=== PATIENT | female | born 1980 | race Caucasian/White ===

== ENCOUNTER → 2016-08-15 | Outpatient (REF) | payer OTHER | LOC: M LAB REF 16:36 | PROVIDERS: ATTEND Obstetrics & Gynecology | DX: O30.043 Twin pregnancy, dichorionic/diamniotic, third trimester (principal) ==

== ENCOUNTER 2016-08-22 13:51 | Outpatient (CLI) | payer OTHER ==
[~2016-08-22] VITALS: Ht 152.4 cm; Wt 95.0 kg
[2016-08-22] VITALS (13 sets, daily range): BP systolic 99–137; BP diastolic 60–79
[2016-08-22] MEDS ORDERED: PRENTAB9 PO (14:29)
[2016-08-22] MEDS ORDERED: LR 1,000 ML IV SCH (14:45)
[2016-08-22] MEDS ORDERED: LACTATED RINGER'S 1000 ML IV ONE (14:45)
[2016-08-22 15:17] LABS: MEAN CORPUSCULAR HEMOGLOBIN 28.5 pg (27.0-33.0); MEAN CORPUSCULAR HGB CONC 34.2 g/dl (32.0-36.5); MEAN CORPUSCULAR VOLUME 83.2 fl (80.0-96.0); RED CELL DISTRIBUTION WIDTH 16.8 % (11.5-14.5); WHITE BLOOD COUNT 11.5 K/mm3 (4.0-10.0)
[2016-08-22 15:46] LABS: ALBUMIN 2.9 GM/DL (3.2-5.2); ALBUMIN/GLOBULIN RATIO 0.73 (1.00-1.93); ALKALINE PHOSPHATASE 165 U/L (45-117); ALT/SGPT 10 U/L (12-78); ANION GAP 12 MEQ/L (8-16); AST/SGOT 16 U/L (15-37); BILIRUBIN,TOTAL 0.5 MG/DL (0.2-1.0); BLOOD UREA NITROGEN 6 MG/DL (7-18); CALCIUM LEVEL 9.1 MG/DL (8.5-10.1); CARBON DIOXIDE LEVEL 20 MEQ/L (21-32); CHLORIDE LEVEL 107 MEQ/L (98-107); CREATININE FOR GFR 0.62 MG/DL (0.55-1.02); GLOMERULAR FILTRATION RATE > 60.0 (>60); GLUCOSE, FASTING 69 MG/DL (70-105); SODIUM LEVEL 139 MEQ/L (136-145); TOTAL PROTEIN 6.9 GM/DL (6.4-8.2); URIC ACID 5.4 MG/DL (2.6-6.0)
--- NOTE | 2016-08-22 17:00 | REP ---
OB ultrasound 08/22/2016: Indication: Diamniotic, dichorionic twin gestation with anterior grade II placenta for twin B and posterior grade II placenta for twin A. There is no evidence of placenta previa or abruption. Cervix is closed, 3.2 cm in length, measured transabdominally. There is somewhat discordant growth of each twin. Based on last menstrual period, 12/23/2015. gestational age of twins and should be 34 weeks 5 days with NISHANT 09/28/2016. Fetus A: Measurements: BPD 8.8 cm = 35 week 5 day Head circumference 31.1 cm = 34 weeks 6 days gestational age corresponding to 52nd percentile. Abdominal circumference 29.3 cm corresponding to 33 weeks 2 days gestational age corresponds to 29th percentile. Femur length 6.4 corresponds to 33 weeks 0 days and corresponds to the 25th percentile. Humeral length 5.8 cm corresponding to 33 weeks 4 day in the 32 nd percentile HC/AC ratio for fetus A is 1.06 with cephalic index 0.81. EFW 2227 grams corresponding to 4 pounds 14 ounce. Cephalic index 0.81 , corresponding to 27% percentile. FHR 141 bpm, Cervix 3.2 cm length, measured transabdominally. JESSICA 2.6 cm (deepest pocket) Gestational age based on today's ultrasound is 34 weeks 1 day. UA S/D ratio 2.81, with RI 0.64 Fetus B: BPD 8.1 = 32 weeks 3 days corresponding to 47th percentile. Head circumference 30.6 cm corresponding 34 weeks 1 day corresponding to 41st percentile. Abdominal circumference 8.3 cm corresponding to 32 weeks 2 days 14th percentile. Femur length 6.4 cm corresponding to 33 weeks 0 days or 25th percentile. Gestational age based on today's ultrasound 32 weeks 5 days. HC/AC ratio 1.08. Cephalic index 0.72 corresponding to 13th percentile. heart rate 144 beats per minute. Cervix is closed 3.2 cm length measured transabdominally. Amniotic fluid index 3.2 cm (deepest pocket). Biophysical profile score 8/8. Umbilical artery systolic to diastolic ratio 2.51 with resistive index 0.6. Impression: Diamniotic dichorionic twin gestation placenta anterior grade II for twin B , and is posterior grade II for twin A . There is no placenta previa or abruption. biophysical profile score is 8/8. Twin A is in vertex position on the maternal right. Amniotic fluid is subjectively normal. Deepest pocket of amniotic fluid 2.6 cm. Estimated age 34 weeks 1 day. Nuchal cord was not identified. Twin B: In vertex position on maternal left . Amniotic fluid is subjectively normal with deepest pocket 3.2 cm. Estimated age is 32 weeks 5 days for fetus B. Nuchal cord was not identified however study was limited due to crowding and advanced gestational age. The head measurements were limited due to low position of the bilateral heads in the uterus. Please see attached worksheets. Signed by Yanet Tolbert MD 08/22/2016 09:24 P
[2016-08-23 10:54] VITALS: BP 120/64
[2016-08-23 16:02] VITALS: BP 113/66
--- NOTE | 2016-08-23 17:54 | DS.PDOC ---
Discharge Summary General Date of Admission 08/22/16 Date of Discharge 08/23/16 Attending Physician: Danny Leslie DO Discharge Summary PROCEDURES PERFORMED DURING STAY: None. COMPLICATIONS/CHIEF COMPLAINT: Labor Check for di/di twins with complaints of a headache and visual changes ADMISSION DIAGNOSES: 1. Intrauterine of di/di twins at 34 weeks 3 days gestation. 2. Elevated blood pressure. DISCHARGE DIAGNOSES: 1. IUP of di/di twins at 34 weeks 4 days gestation 2. Not in active labor. HISTORY OF PRESENT ILLNESS: Patient is a 35-year-old female with di/di twin gestation. She is a at 34 weeks 4 days gestation. She presented to the office with multiple complaints including abdominal pain, headache not relieved by Tylenol, visual changes and dizziness. She also reported decreased movement with both twins. She reports taking her blood pressure at home on multiple occasions with a systolic pressure being in the 150 and 160 range. Only 1 slightly elevated blood pressure was noted at the start of her care. She transferred care to [facility] at 29 weeks gestation. The decision was made by Dr. Leslie and myself to have the patient go to labor and delivery for a 24- hour urine, blood work, and monitoring since the patient lives 2-1/2 hours away. At present the patient denies headaches or visual changes. She reports active movement. Denies leaking of fluid or vaginal bleeding. Reports that she feels much better today. HOSPITAL COURSE: Patient was admitted for for observation. Hospital course has been uncomplicated. DISCHARGE MEDICATIONS: Please see below. ALLERGIES: Please see below. LABORATORY DATA: Please see below. IMAGING: A biophysical profile on twin A and twin B were 8 out of 8 and amniotic fluid for both twins is within normal limits. DISCHARGE CONDITION: Stable ACTIVITY: As tolerated DIET: Regular DISCHARGE PLAN AND INSTRUCTIONS: 1. Patient to follow up in office on August 26. 2. Education done on access to care, cross coverage of care, diet and fluid intake (as patient had not been eating or drinking prior to coming to last appointment), labor signs and symptoms, kick counts, and danger signs to report. Reviewed preeclamptic signs and symptoms of the patient. Patient is to call office with any concerns or complaints.. 3. Continue twice-weekly monitoring. Vital Signs/I&Os Vital Signs Date Time Temp Pulse Resp B/P Pulse Ox O2 Delivery O2 Flow Rate FiO2 1/17/17 16:02 98.3 93 113/66 08/23/16 10:54 18 I&O- Last 24 Hours up to 6 AM 08/23/16 06:00 Intake Total 1000 ml Balance 1000 ml Laboratory Data Labs 24H Laboratory Tests 2 08/23/16 14:10: Urine Creatinine 66.5, Urine Creatinine 24 Hour 731.5, Urine Total Protein 15.6H , Urine Total Protein 24 Hour 171.6H, Urine Total Volume 1100 Item Value Date Time White Blood Count 11.5 K/mm3 H 08/22/16 1450 Red Blood Count 3.97 M/mm3 L 08/22/16 1450 Hemoglobin 11.3 g/dl L 08/22/16 1450 Hematocrit 33.0 % L 08/22/16 1450 Mean Corpuscular Volume 83.2 fl 08/22/16 1450 Mean Corpuscular Hemoglobin 28.5 pg 08/22/16 1450 Mean Corpuscular Hemoglobin Concent 34.2 g/dl 08/22/16 1450 Red Cell Distribution Width 16.8 % H 08/22/16 1450 Platelet Count 212 k/mm3 08/22/16 1450 Item Value Date Time Urine Random Creatinine 285.0 MG/DL 08/22/16 1451 Urine Random Total Protein 61.9 MG/DL H 08/22/16 1451 Sodium Level 139 MEQ/L 08/22/16 1450 Potassium Level 4.0 MEQ/L 08/22/16 1450 Chloride Level 107 MEQ/L 08/22/16 1450 Carbon Dioxide Level 20 MEQ/L L 08/22/16 1450 Anion Gap 12 MEQ/L 08/22/16 1450 Blood Urea Nitrogen 6 MG/DL L 08/22/16 1450 Creatinine 0.62 MG/DL 08/22/16 1450 Glomerular Filtration Rate > 60.0 08/22/16 1450 Fasting Glucose 69 MG/DL L 08/22/16 1450 Uric Acid 5.4 MG/DL 08/22/16 1450 Calcium Level 9.1 MG/DL 08/22/16 1450 Total Bilirubin 0.5 MG/DL 08/22/16 1450 Aspartate Amino Transf (AST/SGOT) 16 U/L 08/22/16 1450 Alanine Aminotransferase (ALT/SGPT) 10 U/L L 08/22/16 1450 Alkaline Phosphatase 165 U/L H 08/22/16 1450 Total Protein 6.9 GM/DL 08/22/16 1450 Albumin 2.9 GM/DL L 08/22/16 1450 Albumin/Globulin Ratio 0.73 L 08/22/16 1450 Item Value Date Time Urine Random Creatinine 285.0 MG/DL 08/22/16 1451 Urine Random Total Protein 61.9 MG/DL H 08/22/16 1451 Medications Scheduled Multivitamins/ ( 27-0.8 mg) 1 Tab Tab 1 TAB PO DAILY Allergies Coded Allergies: No Known Allergies (Unverified , 08/22/16) AMOR SIEGEL CNM Aug 23, 2016 17:53
== END 2016-08-23 17:20 | disposition home or self-care (01) ==
LOC: M LDO 13:51
PROVIDERS: ATTEND Obstetrics & Gynecology
DX: O99.89 Other specified diseases and conditions complicating pregnancy, childbirth and the puerperium (principal); R51 Headache; R10.9 Unspecified abdominal pain; R42 Dizziness and giddiness; O26.893 Other specified pregnancy related conditions, third trimester; O36.8130 Decreased fetal movements, third trimester, not applicable or unspecified; O30.043 Twin pregnancy, dichorionic/diamniotic, third trimester; O13.3 Gestational [pregnancy-induced] hypertension without significant proteinuria, third trimester; O09.513 Supervision of elderly primigravida, third trimester; Z3A.34 34 weeks gestation of pregnancy

== ENCOUNTER → 2016-08-22 | Outpatient (REF) | payer OTHER ==
[~2016-08-22] MED LIST: PRENTAB9 PO
== END ==
LOC: M LAB REF 16:19
PROVIDERS: ATTEND Obstetrics & Gynecology
DX: O30.043 Twin pregnancy, dichorionic/diamniotic, third trimester (principal); Z36 Encounter for antenatal screening of mother; Z3A.34 34 weeks gestation of pregnancy

== ENCOUNTER 2016-09-20 05:05 | Inpatient (IN) | payer OTHER ==
[~2016-09-20] VITALS: Ht 152.4 cm; Wt 97.0 kg
[2016-09-20] VITALS (8 sets, daily range): BP systolic 106–133; BP diastolic 58–84
[2016-09-20] MEDS ORDERED: BICITRA 30ML SOLN UDC PO ONE (05:30)
[2016-09-20] MEDS ORDERED: LR 1,000 ML IV ONE (05:30)
[2016-09-20 06:01] LABS: MEAN CORPUSCULAR HEMOGLOBIN 30.2 pg (27.0-33.0); MEAN CORPUSCULAR HGB CONC 35.2 g/dl (32.0-36.5); MEAN CORPUSCULAR VOLUME 85.8 fl (80.0-96.0); RED CELL DISTRIBUTION WIDTH 16.5 % (11.5-14.5); WHITE BLOOD COUNT 8.8 K/mm3 (4.0-10.0)
[2016-09-20] MEDS ORDERED: LR 1,000 ML IV SCH (06:30)
[2016-09-20] MEDS ORDERED: MORPHINE PRES-FREE INJ 10 MG/10 ML VIAL (J2274) As Ordered ONE (07:06)
[2016-09-20 07:29] LABS: HBSAG L&D NEGATIVE (NEGATIVE)
[2016-09-20] MEDS ORDERED: NALOXONE INJ 0.4 MG/1 ML VIAL (J2310) IV PRN ×2 (08:03)
[2016-09-20] MEDS ORDERED: METOCLOPRAMIDE INJ 10MG/2ML VIAL (J2765) IV PRN (08:03)
[2016-09-20] MEDS ORDERED: NALBUPHINE HCL 10 MG/ML AMP (J2300) IV PRN ×2 (08:03→09:30)
[2016-09-20] MEDS ORDERED: ONDANSETRON 4MG/2ML VIAL (J2405) IV PRN ×3 (08:03→09:30)
[2016-09-20] MEDS ORDERED: ONDANSETRON 4MG/2ML VIAL (J2405) As Ordered ONE (08:08)
[2016-09-20] MEDS ORDERED: PHENYLephrine HCL 500 MCG/5 ML (100MCG/ML) SYRINGE (J2370) As Ordered ONE ×2 (08:13→08:15)
[2016-09-20] MEDS ORDERED: KETOROLAC 60 MG/2 ML VIAL (J1885) As Ordered ONE (08:45)
[2016-09-20] MEDS ORDERED: MEASLES,MUMPS,RUBELLA VACCINE INJ (MMR-II) (90707) SC SCH (09:00)
[2016-09-20] MEDS ORDERED: MOM 30ML SUSPENSION UDC PO PRN (09:00)
[2016-09-20] MEDS: DOCUSATE SODIUM 100 MG CAP PO SCH ×2 (09:00→21:57)
[2016-09-20] MEDS: PRENATAL VITAMIN TAB PO SCH (09:00)
[2016-09-20] MEDS ORDERED: RHOGAM 300 MCG (1500 IU) INJ (J2790) IM SCH (09:00)
[2016-09-20] MEDS ORDERED: NORCO, ANEXSIA 5/325MG TABLET (HYDROcodone/ACETAMINOPHEN) PO PRN (09:00)
[2016-09-20] MEDS ORDERED: METHYLERGONOVINE MALEATE 0.2 MG TAB PO PRN (09:00)
[2016-09-20 09:08] LABS: CORD GAS ABE A -6.3; CORD GAS HCO3 A 20.2 MEQ/L; CORD GAS O2 SAT A 44.5 %; CORD GAS PCO2 A 43.4 mmHg; CORD GAS PH A 7.285 UNITS; CORD GAS PO2 A 20.9 mmHg; CORD GAS SBC A 18.3 MEQ/L; CORD GAS TCO2 A 21.5 MEQ/L
[2016-09-20 09:10] LABS: CORD GAS ABE V -4.6; CORD GAS HCO3 V 20.6 MEQ/L; CORD GAS PCO2 V 38.7 mmHg; CORD GAS PH V 7.344 UNITS; CORD GAS SBC V 20.4 MEQ/L; CORD GAS TCO2 V 21.8 MEQ/L
[2016-09-20 09:14] LABS: CORD GAS ABE V -5.1; CORD GAS HCO3 V 21.6 MEQ/L; CORD GAS O2 SAT V 77.9 %; CORD GAS PCO2 V 46.2 mmHg; CORD GAS PH V 7.287 UNITS; CORD GAS PO2 V 37.9 mmHg; CORD GAS SBC V 19.9 MEQ/L
[2016-09-20 09:16] LABS: CORD GAS ABE A -4.4; CORD GAS HCO3 A 22.4 MEQ/L; CORD GAS O2 SAT A 50.6 %; CORD GAS PCO2 A 47.9 mmHg; CORD GAS PH A 7.288 UNITS; CORD GAS PO2 A 22.9 mmHg; CORD GAS SBC A 19.8 MEQ/L; CORD GAS TCO2 A 23.9 MEQ/L
[2016-09-20] MEDS ORDERED: PERCOCET 5MG/325MG TAB PO PRN (09:30)
[2016-09-20] MEDS ORDERED: fentaNYL 100 MCG/2 ML INJECTION (J3010) IV PRN (09:30)
[2016-09-20] MEDS: LR 1,000 ML IV SCH ×2 (09:38→17:34)
[2016-09-20] MEDS ORDERED: LACTATED RINGER'S 1000 ML IV ONE (14:45)
[2016-09-20] MEDS: IBUPROFEN 800 MG TAB PO SCH (17:33)
[2016-09-20] MEDS: NORCO, ANEXSIA 5/325MG TABLET (HYDROcodone/ACETAMINOPHEN) PO PRN (22:50)
[2016-09-21] MEDS: IBUPROFEN 800 MG TAB PO SCH ×3 (00:18→16:23)
[2016-09-21] MEDS: LR 1,000 ML IV SCH (00:49)
[2016-09-21 02:35] VITALS: BP 112/62
[2016-09-21 06:18] VITALS: BP 114/61
[2016-09-21 07:03] LABS: MEAN CORPUSCULAR HEMOGLOBIN 29.3 pg (27.0-33.0); MEAN CORPUSCULAR HGB CONC 33.8 g/dl (32.0-36.5); MEAN CORPUSCULAR VOLUME 86.5 fl (80.0-96.0); RED CELL DISTRIBUTION WIDTH 16.8 % (11.5-14.5); WHITE BLOOD COUNT 9.9 K/mm3 (4.0-10.0)
[2016-09-21] MEDS: PRENATAL VITAMIN TAB PO SCH (08:35)
[2016-09-21] MEDS: DOCUSATE SODIUM 100 MG CAP PO SCH ×2 (08:36→21:36)
[2016-09-21 10:00] VITALS: BP 124/67
[2016-09-21] MEDS: NORCO, ANEXSIA 5/325MG TABLET (HYDROcodone/ACETAMINOPHEN) PO PRN ×3 (12:42→23:37)
[2016-09-21 14:00] VITALS: BP 130/62
[2016-09-21] MEDS ORDERED: INFLUENZA QUADRIVALENT PF VACCINE 0.5ML SYRINGE/VIAL (90686) IM ONE (15:00)
--- NOTE | 2016-09-21 15:33 | HPE ---
DATE OF ADMISSION: 09/20/2016 Kristen is a 35-year-old female 2, para 0-0-1-0 with an estimated date of confinement (EDC) of 09/30/2016, estimated gestational age (EGA) 38-3/7 weeks gestation who is being admitted for a primary section. The patient is twin gestation, di-di, was refusing trial of labor and wants to proceed with section. care reviewed. She was transferred to our office in her late second trimester. She has been doing well all throughout her with routine ultrasound for growth and testing. LABORATORY DATA: Blood type is O positive, rubella immune, hepatitis negative, HIV negative, GC and Chlamydia negative. One-hour sugar testing was within normal limits. Her GBS is negative. PAST MEDICAL HISTORY: Significant for depression and anxiety. PAST SURGICAL HISTORY: Dilation and curettage times one. SOCIAL HISTORY: Denies any alcohol or drug use. The patient does have a history of cigarette smoking for which she is trying to quit. PHYSICAL EXAMINATION: Normal-appearing, obese female in no acute distress. ABDOMEN: Soft, nontender, nondistended. EXTREMITIES: No clubbing, cyanosis or edema. VAGINAL EXAMINATION: 2 cm dilated, cervix 70% effaced. Category 1 tracing. ASSESSMENT: Twin gestation at 38-3/7 weeks gestation, di-di. The patient is requesting delivery via primary section. PLAN: The risk and benefit of vaginal delivery versus section discussed with the patient in detail and on multiple occasions. The patient insists on proceeding with a primary section. She is being admitted today for a primary low transverse section. The risk and benefit of the surgery are also discussed with the patient.
[2016-09-21 18:02] VITALS: BP 124/68
[2016-09-21 22:15] VITALS: BP 116/68
--- NOTE | 2016-09-21 23:27 | RO ---
DATE OF PROCEDURE: 09/20/2016 PREOPERATIVE DIAGNOSES: Twin gestation, diamniotic, dichorionic at 38-3/7 weeks gestation, requesting a primary section. POSTOPERATIVE DIAGNOSES: Twin gestation, diamniotic, dichorionic at 38-3/7 weeks gestation, requesting a primary section. PROCEDURE: Primary low transverse section, twin delivery. SURGEON: Danny Leslie DO CLINICAL SCIENTIST: Afia Carrera COMPLICATION: None. ANESTHESIA: Spinal. ESTIMATED BLOOD LOSS: 500. Kristen is a 35-year-old female, 2, para 0-0-1-0, with twin gestation, diamniotic, dichorionic at 38-3/7 weeks gestation, requesting a primary section. After extensive counseling, the decision was made to proceed with the primary section. Twin A is a male found in occiput anterior position, scores 8 and 9 , weight 6 pounds. Twin B is a female infant, scores 8 and 9, weight 5 pounds 14 ounces. Normal appearing tubes and ovaries. Two placentas noted and both sent to pathology for final diagnosis. DESCRIPTION OF PROCEDURE: After obtaining informed consent, patient was taken to the operating room where spinal anesthetic was found to be adequate. She was then draped and prepped in usual sterile fashion in the supine position. At this point, a Pfannenstiel incision was made. This was carried down to the fascia. Fascia was incised in midline fashion and carried through laterally. Superior aspect of the fascia was then grasped with two Omkar clamps, tented off, and dissected off the rectus muscles sharply. The inferior aspect was dissected off in a similar fashion. Rectus muscles in midline fashion. Peritoneum identified. Peritoneal cavity entered bluntly. Superior and inferior dissection of the peritoneum was then done with good visualization of the bladder. At this point, a Mobius skin retractor was placed. A low transverse uterine incision was made. Twin A was delivered in atraumatic fashion after rupture of membranes with clear fluid. Then, we then proceeded with Twin B. Again, the amniotic sac was ruptured, clear fluid noted. Infant was delivered in atraumatic fashion. Nose and mouth bulb suctioned. Cord doubly clamped and cut, and the infants were handed over to awaiting warmer. Cord blood and cord gas were sent. Placenta removed manually. Uterus cleared of all clot and debris, and the uterine incision was then repaired in two separate layers. Pelvis copiously irrigated with normal saline and suctioned out. We turned to the peritoneum, which was closed in a running fashion using #2-0 Vicryl. Fascia closed in two separate segments of #0 Vicryl sutures, and the skin was reapproximated in subcuticular fashion using #3-0 Vicryl on a Cristopher. Patient tolerated the procedure well. She was then transferred to recovery room in stable condition. CJ
[2016-09-22] MEDS: LR 1,000 ML IV SCH (00:49)
[2016-09-22] MEDS: IBUPROFEN 800 MG TAB PO SCH ×2 (01:10→14:32)
[2016-09-22] MEDS: NORCO, ANEXSIA 5/325MG TABLET (HYDROcodone/ACETAMINOPHEN) PO PRN ×2 (03:40→08:10)
[2016-09-22 05:57] VITALS: BP 120/72
[2016-09-22] MEDS: DOCUSATE SODIUM 100 MG CAP PO SCH (08:09)
[2016-09-22] MEDS: PRENATAL VITAMIN TAB PO SCH (08:09)
--- NOTE | 2016-09-22 08:44 | DS.PDOC ---
Discharge Summary General Date of Admission Sep 20, 2016 at 05:05 Date of Discharge 09/22/16 Attending Physician: Danny Leslie DO Discharge Summary COMPLICATIONS/CHIEF COMPLAINT: Primary Csection, Twin Gestation ADMISSION DIAGNOSES: 1. IUP of di/di twin gestation at 38 weeks and 4 days. 2. Primary section for twin gestation. DISCHARGE DIAGNOSES: 1. Primary section for twin gestation. HISTORY OF PRESENT ILLNESS: Patient is a 35-year-old female who is a with di/di twin gestation. Patient desired primary section. Twin A with a two-vessel cord. was complicated by twin gestation and AMA.. She initiated care in [place] and transferred care at 31 weeks to [facility]. Patient reports she is doing well breast-feeding and feels confident comfortable going home doing that. Patient reports she is also voiding without difficulty. Reports pain is managed well with Motrin and [place]. HOSPITAL COURSE: Patient was admitted for [a primary section for di di twin gestation. Hospital course has been uncomplicated.] DISCHARGE MEDICATIONS: Please see below. ALLERGIES: Please see below. PHYSICAL EXAMINATION ON DISCHARGE: VITAL SIGNS: Please see below. RESPIRATORY EXAMINATION: Respirations are regular. Patient has not using accessory muscles. ABDOMINAL EXAMINATION: This is firm and at uterus. Perineum: Bleeding is scant bright red. EXTREMITIES: Bilateral lower legs and feet have 1+ pitting edema. SKIN: [Low transverse abdominal incision is clear. No drainage noted at incision. Edges are approximated. Steri-Strips in place.] NEUROLOGICAL EXAMINATION: A and O 3. LABORATORY DATA: Please see below. DISCHARGE CONDITION: [Stable]. ACTIVITY: [As tolerated]. DIET: Regular. DISCHARGE PLAN AND INSTRUCTIONS: 1. [Patient follow-up at [facility] in 2 weeks for an incision check and 6 weeks ]. 2. Reviewed it signs and symptoms of mastitis, hemorrhage, infection at the incisional site, endometritis, DVT, and pulmonary embolism. 3. Reviewed comfort measures for pain. Percocet were sent to pharmacy of choice. Patient to continue [id number] medications as desired for Motrin and Tylenol. Reviewed breast care, pelvic rest and inderjit care with patient. Vital Signs/I&Os Vital Signs Date Time Temp Pulse Resp B/P Pulse Ox O2 Delivery O2 Flow Rate FiO2 09/22/16 08:10 18 09/22/16 05:57 97.7 90 120/72 09/22/16 03:40 Room Air 09/21/16 14:00 100 Laboratory Data CBC/BMP Item Value Date Time White Blood Count 8.8 K/mm3 09/20/16 0537 Hemoglobin 11.3 g/dl L 09/20/16 0537 Red Blood Count 3.76 M/mm3 L 09/20/16 0537 Hematocrit 32.2 % L 09/20/16 0537 Platelet Count 203 k/mm3 09/20/16 0537 White Blood Count 9.9 K/mm3 09/21/16 0640 Red Blood Count 3.05 M/mm3 L 09/21/16 0640 Hemoglobin 8.9 g/dl L # 09/21/16 0640 Hematocrit 26.4 % L 09/21/16 0640 Platelet Count 161 k/mm3 09/21/16 0640 Medications Scheduled Multivitamins/ ( 27-0.8 mg) 1 Tab Tab 1 TAB PO DAILY Allergies Coded Allergies: Sulfa Antibiotics (Verified Allergy, Intermediate, Hives and swelling, 09/13) AMOR SIEGEL CNM Sep 22, 2016 08:42
[2016-09-22] MEDS ORDERED: INFLUENZA QUADRIVALENT PF VACCINE 0.5ML SYRINGE/VIAL (90686) IM ONE (09:00)
[2016-09-22] MEDS ORDERED: COLA100C PO (15:20)
[2016-09-22] MEDS ORDERED: IBUPROFEN 800 MG TAB PO SCH (22:00)
== END 2016-09-22 16:30 | disposition home or self-care (01) | DRG 766 ==
LOC: M LDI 05:05 → M OBS 11:30
PROVIDERS: ADMIT Obstetrics & Gynecology; ATTEND Obstetrics & Gynecology
PROC: 10D00Z1 Extraction of Products of Conception, Low, Open Approach (ICD-10-PCS; principal; 2016-09-20 07:30)
DX: O30.043 Twin pregnancy, dichorionic/diamniotic, third trimester (principal); Z37.2 Twins, both liveborn; Z3A.38 38 weeks gestation of pregnancy; Z88.2 Allergy status to sulfonamides; Z83.3 Family history of diabetes mellitus; Z82.49 Family history of ischemic heart disease and other diseases of the circulatory system